=== PATIENT | male | born 1980 | race Caucasian/White ===

== ENCOUNTER 2017-07-19 22:03 | Emergency (ER) | payer BC ==
[2017-07-19] MEDS ORDERED: Sodium Chloride 0.9% 1000 ML 1,000 ML IV STA (22:22)
[2017-07-19 22:36] LABS: BASOPHIL % 0.1 % (0.0-0.4); Eosinophil % 1.5 % (0.00-5.0); Granulocytes % 46.3 % (36.0-66.0); Mean Corpuscular Hemoglobin 29.3 pg (26-32); Monocytes % 8.1 % (0.0-12.0); Platelet Count 268 K/mm3 (150-450); Red Blood Count 5.25 M/mm3 (4.1-5.6); Red Cell Distribution Width 12.4 % (11.5-14.0); White Blood Count 8.6 K/mm3 (4.0-10.5)
--- NOTE | 2017-07-19 22:40 | ERPHSYRPT ---
- History of Present Illness Time Seen by Provider: 07/19/17 22:07 Source: patient Patient Subjective Stated Complaint: pt is co right lower quad pain this hamida - states he thinks it is having a kidney stone -states pain is gone now but prior to arr it radiated into his testicle - no fever - -started taking his flomax and water pill a couple of days ago Triage Nursing Assessment: pt is awake and alert and able to answer questions Physician History: CC: right abdominal pain Hx: 36 y/o patient of Dr Guillen with right lower abdominal pain, queasy all day, worse pain in past hours. He has hx of frequent kidney stones. No prior abdominal surgeries. Nausea. No vomiting. This pain is different from prior pain. Pain now is some better. Radiated to right testicle. No back pain. He has chronic hematuria and follows with urology. Severity: severe (better now) Allergies/Adverse Reactions: guaifenesin [From Mucinex] Allergy (Verified 07/19/17 22:36) Home Medications: Hydrochlorothiazide 1 tab DAILY 07/19/17 [History] Omeprazole [Prilosec] 1 tab DAILY 07/19/17 [History] Hx Tetanus, Diphtheria Vaccination/Date Given: Yes Hx Influenza Vaccination/Date Given: No Hx Pneumococcal Vaccination/Date Given: No - Review of Systems Constitutional: No Fever, No Chills Eyes: No Symptoms Ears, Nose, & Throat: No Symptoms Respiratory: No Symptoms, No Cough, No Dyspnea Cardiac: No Chest Pain Abdominal/Gastrointestinal: Abdominal Pain, Nausea, No Vomiting, No Diarrhea Skin: No Rash Neurological: No Headache All Other Systems: Reviewed and Negative - Past Medical History Pertinent Past Medical History: Yes Neurological History: No Pertinent History ENT History: No Pertinent History Cardiac History: No Pertinent History Respiratory History: No Pertinent History Endocrine Medical History: No Pertinent History Musculoskeletal History: No Pertinent History GI Medical History: No Pertinent History History: Other Psycho-Social History: No Pertinent History Male Reproductive Disorders: No Pertinent History Other Medical History: HX OF KIDNEY STONES - Past Surgical History Past Surgical History: No Musculoskeletal: Other Other Surgical History: BIALT CARPAL TUNNEL - Social History Smoking Status: Never smoker Exposure to second hand smoke: Yes Drug Use: none Patient Lives Alone: No (runs [employer]) - Nursing Vital Signs Nursing Vital Signs: Initial Vital Signs Temperature 98.8 F 07/19/17 22:32 Pulse Rate 97 H 07/19/17 22:32 Respiratory Rate 16 07/19/17 22:32 Blood Pressure 137/86 07/19/17 22:32 O2 Sat by Pulse Oximetry 100 07/19/17 22:32 Pain Scale Pain Intensity 0 - Physical Exam General Appearance: alert Eye Exam: PERRL/EOMI Ears, Nose, Throat Exam: normal ENT inspection, moist mucous membranes Neck Exam: normal inspection, non-tender, supple Respiratory Exam: normal breath sounds, lungs clear Cardiovascular Exam: regular rate/rhythm Gastrointestinal/Abdomen Exam: soft, tenderness (right and left lower), No mass , No guarding Male Genitalia Exam: normal genitalia, No hernia, No testicular tenderness Back Exam: normal inspection, No CVA tenderness Extremity Exam: normal inspection, normal range of motion Neurologic Exam: alert, oriented x 3, cooperative, sensation nml, No motor deficits Skin Exam: warm, dry, No rash SpO2 Interpretation: normal SpO2: 100 Oxygen Delivery: Room Air - Course Nursing assessment & vital signs reviewed: Yes - CT Exams abd/pelvis CT Interpretation: Tele-radiologist Report (no acute, no findings suggestive of appendicitis, no renal stone disease) Ordered Tests: Active Orders 24 hr Category Date Time Status Clean Catch Urine Specimen STAT Care 07/19/17 22:22 Active IV Insertion STAT Care 07/19/17 22:22 Active ABDOMEN AND PELVIS W/0 CONTRAS [CT] Stat Exams 07/19/17 22:22 Taken CBC W DIFF Stat Lab 07/19/17 22:30 Completed CMP Stat Lab 07/19/17 22:30 Completed LIPASE Stat Lab 07/19/17 22:30 Completed UA W/RFX UR CULTURE Stat Lab 07/19/17 22:50 Completed Medication Summary Discontinued Medications Generic Name Dose Route Start Last Admin Trade Name Freq PRN Reason Stop Dose Admin Sodium Chloride 1,000 mls @ 999 mls/hr 07/19/17 22:22 07/19/17 22:49 Sodium Chloride 0.9% 1000 Ml IV 07/19/17 23:22 999 mls/hr .Q1H1M STA Administration Sodium Chloride Confirm 07/19/17 22:45 Sodium Chloride 0.9% 1000 Ml Administered 07/19/17 22:46 Dose 1,000 mls @ ud .ROUTE .[facility] Lab/Rad Data: Laboratory Result Diagrams 07/19/17 22:30 07/19/17 22:30 Laboratory Results 07/19/17 07/19/17 07/19/17 Range/Units 22:50 22:30 22:30 WBC 8.6 (4.0-10.5) K/mm3 RBC 5.25 (4.1-5.6) M/mm3 Hgb 15.4 (12.5-18.0) gm/dl Hct 45.7 (42-50) % MCV 87.0 (78-100) fl MCH 29.3 (26-32) pg MCHC 33.7 (32-36) g/dl RDW 12.4 (11.5-14.0) % Plt Count 268 (150-450) K/mm3 MPV 9.0 (6-9.5) fl Gran % 46.3 (36.0-66.0) % Lymphocytes % 44.0 (24.0-44.0) % Monocytes % 8.1 (0.0-12.0) % Eosinophils % 1.5 (0.00-5.0) % Basophils % 0.1 (0.0-0.4) % Basophils # 0.01 (0-0.4) Sodium 140 (136-145) mEq/L Potassium 3.8 (3.5-5.1) mEq/L Chloride 100 (98-107) mEq/L Carbon Dioxide 31.6 (21-32) mEq/L Anion Gap 11.8 (5-15) MEQ/L BUN 12 (9-20) mg/dL Creatinine 1.16 (0.55-1.30) mg/dl Estimated GFR > 60 ML/MIN Glucose 119 H (70-110) MG/DL Calcium 9.6 (8.5-10.1) mg/dL Total Bilirubin 0.40 (0.2-1.0) mg/dL AST 7 L (15-37) U/L ALT 25 (12-78) U/L Alkaline Phosphatase 79 (46-116) U/L Serum Total Protein 8.0 (6.4-8.2) gm/dL Albumin 4.4 (3.4-5.0) g/dL Lipase 106 (73-393) U/L Ur Collection Type CCMS Urine Color YELLOW (YELLOW) Urine Appearance CLEAR (CLEAR) Urine pH 5.0 (5-6) Ur Specific [place] 1.020 (1.005-1.025) Urine Protein NEGATIVE (Negative) Urine Ketones NEGATIVE (NEGATIVE) Urine Blood NEGATIVE (0-5) Guillermo/ul Urine Nitrite NEGATIVE (NEGATIVE) Urine Bilirubin NEGATIVE (NEGATIVE) Urine Urobilinogen NORMAL (0-1) mg/dL Ur Leukocyte Esterase NEGATIVE (NEGATIVE) Urine Culture Reflexed NO (NO) Urine Glucose NEGATIVE (NEGATIVE) mg/dL Specimen Received 07-19-17 2250 - Progress Progress Note: 07/19/17 22:[address] to rule out appendicitis or kidney stone. He understands risks of repeat CT. He desires CT. 07/19/17 23:[address] reassuring. Still some tenderness on exam, mild on recheck. He was given IVF. Discussed low but possible chance of early appendicitis. He will go home to rest. He had normal BMs. He was instructed to return for worsened pain, fever, vomiting, or concerns. is [employer] and they agree with plan. Counseled pt/family regarding: lab results, diagnosis, need for follow-up, rad results - Departure Time of Disposition: 23:37 Departure Disposition: Home Clinical Impression: RLQ abdominal pain Condition: Stable Critical Care Time: No Referrals: JESSE GUILLEN MD [Primary Care Provider] - Instructions: Abdominal Pain-Adult Additional Instructions: ABDOMINAL PAIN 1. There are several different causes for abdominal pain, some of which may not be able to be identified on initial examination. 2. The important thing to remember is that bodily functions can change in a short period of time. If you notice any of the following symptoms, return to the emergency department or consult your doctor immediately: A. Worsening pain or no improvement in the next 12 hours. B. Increasing, severe abdominal pain C. Blood in stool D. Black stools E. Persistent vomiting F. Fever or chills or other symptoms
[2017-07-19] MEDS ORDERED: Sodium Chloride 0.9% 1000 ML 1,000 ML ONE (22:45)
[2017-07-19 22:54] LABS: Collection Type CCMS
[2017-07-19 22:55] LABS: ADD URINE CULTURE? NO (NO); Bilirubin NEGATIVE (NEGATIVE); Blood NEGATIVE Ery/ul (0-5); COMPLETE URINE MICROSCOPIC? NO; Glucose NEGATIVE (NEGATIVE); Leukocyte Esterase NEGATIVE (NEGATIVE)
[2017-07-19 22:57] LABS: ALBUMIN 4.4 g/dL (3.4-5.0); ALKALINE PHOSPHATASE 79 U/L (46-116); ANION GAP 11.8 MEQ/L (5-15); BLOOD UREA NITROGEN 12 mg/dL (9-20); CHLORIDE 100 mEq/L (98-107); Carbon Dioxide 31.6 mEq/L (21-32); Glucose 119 MG/DL (70-110); LIPASE 106 U/L (73-393); Potassium 3.8 mEq/L (3.5-5.1); SGOT/AST 7 U/L (15-37); SGPT/ALT 25 U/L (12-78); SODIUM 140 mEq/L (136-145)
[2017-07-19 23:19] VITALS: BP 123/83; PULSE 72
[2017-07-19 23:38] VITALS: O2SAT 100
--- NOTE | 2017-07-20 07:09 | XRAY ---
Indication: Right lower quadrant pain and nausea. History of stones. Multiple contiguous axial images obtained through the abdomen and pelvis without contrast as ordered. Comparison: June 30, 2015. Lung bases again essentially clear. Heart is not enlarged. Noncontrasted stomach and bowel loops appear nonobstructed. There is mild/moderate diffuse scattered colonic fecal debris throughout. Normal appendix. No free fluid/air. Remaining liver, gallbladder, pancreas, spleen, adrenal glands, kidneys, ureters, bladder, and aorta appear unremarkable for noncontrast exam. Osseous structures intact. Impression: 1. Fecal stasis without obstruction. 2. No acute intra-abdominal/pelvic abnormalities on this noncontrast exam. Comment: Preliminary interpretation was made by [facility]. No discrepancy. CTDI 18.40
== END 2017-07-19 23:55 | disposition home or self-care (01) ==
LOC: ED 22:03
DX: R10.31 Right lower quadrant pain (principal); R11.10 Vomiting, unspecified
CPT/HCPCS: 36000; 36415; 74176; 80053; 81002; 83690; 85025; 96360; 99284

== ENCOUNTER 2018-08-09 10:22 | Emergency (ER) | payer BC ==
[2018-08-09] MEDS ORDERED: Sodium Chloride 0.9% 1000 ML 1,000 ML (10:41)
[2018-08-09] MEDS ORDERED: MORPHINE SULFATE 4 MG INJ ×2 (10:41→10:54)
[2018-08-09] MEDS ORDERED: Zofran 4 MG/2 ML VIAL (10:41)
[2018-08-09] MEDS: Zofran 4 MG/2 ML VIAL IV (10:52)
[2018-08-09] MEDS: MORPHINE SULFATE 4 MG INJ IV ×2 (10:52→10:55)
[2018-08-09] MEDS: Sodium Chloride 0.9% 1000 ML 1,000 ML IV (11:20)
[2018-08-09] MEDS ORDERED: DIPRIVAN 200 MG/20 ML IV (11:52)
== END 2018-08-09 12:59 | disposition home or self-care (01) ==
LOC: ED 10:22
CPT/HCPCS: 36000; 73030; 93005; 94799; 96374; J2270; J2405; J2704

== ENCOUNTER 2022-06-19 22:27 | Emergency (ER) | payer BC ==
[2022-06-19] MEDS ORDERED: TORAdol 30 mg Injection IV ONE (22:45)
[2022-06-19] MEDS ORDERED: TORAdol 30 mg Injection ONE (23:17)
[2022-06-19] MEDS ORDERED: Sodium Chloride 0.9% 1000 ML 1,000 ML IV STA (23:55)
[2022-06-19] MEDS ORDERED: Hydromorphone 1 mg/ml Injection IV ONE (23:55)
[2022-06-19] MEDS ORDERED: Zofran 4 MG/2 ML VIAL IV ONE (23:56)
[2022-06-19] MEDS ORDERED: Sodium Chloride 0.9% 1000 ML 1,000 ML ONE (23:59)
[2022-06-19] MEDS ORDERED: Hydromorphone 1 mg/ml Injection ONE (23:59)
[2022-06-19] MEDS ORDERED: Zofran 4 MG/2 ML VIAL ONE (23:59)
[2022-06-20 00:33] LABS: Appearance CLEAR (CLEAR); Bilirubin NEGATIVE (NEGATIVE); Dipstick done @ ? MAIN LAB; Glucose NEGATIVE (NEGATIVE); Ketones NEGATIVE (NEGATIVE); Nitrite NEGATIVE (NEGATIVE); Ph 5.5 (5-6); Protein,Urine Dip NEGATIVE (Negative); RBC LARGE Ery/ul (0-5); Specific Gravity >=1.030 (1.005-1.025); Urobilinogen 0.2 mg/dL (0-1)
[2022-06-20 00:35] VITALS: O2SAT 94
[2022-06-20 00:39] LABS: Mucus SLIGHT /HPF (NEGATIVE); RBC >101 /HPF (0-2); Urine Cultured Indicated? NO
--- NOTE | 2022-06-20 00:51 | ERPHSYRPT ---
- History of Present Illness Historian: patient Exam Limitations: no limitations Patient Subjective Stated Complaint: I think I have a kidney stone. Triage Nursing Assessment: pt ambulated into ER, spouse at bedside. Pt c/o back pain and is bent over, states, "I think I have a kidney stone". Pt started having testicle pain last week that moved to lower abd area and now to back. Pt took 2 Cozad at home with no relief. Pt only has back pain at this time. Abd soft with active bs x4 quad, nontender on palpation. The pain got bad tonight around 7pm. Physician History: 41 yo wm w L CVA pain since 06/15 which is worse over the last 24 hours. Pain is a pressure sensation and 9/10 upon arrival. Pain does not radiate. He did have some testicular pain early last week which resolved. Pt does have some nausea but denies vomiting/dysuria/hematuria/diarrhea/melena/hematochezia/fever/chest pain/dyspnea. He has a h/o kidney stones with similar symptoms that have passed wo intervention. Timing/Duration: other (4 days) Activities at Onset: rest Quality: pressure Abdominal Pain Onset Location: other (L CVA) Pain Radiation: no radiation Severity of Pain-Max: severe Severity of Pain-Current: severe Modifying Factors: Improves With: nothing Associated Symptoms: back, testicular pain Previous symptoms: same symptoms as today Allergies/Adverse Reactions: guaifenesin [From Mucinex] Allergy (Verified 06/19/22 22:46) Hx Tetanus, Diphtheria Vaccination/Date Given: Yes Hx Influenza Vaccination/Date Given: No Hx Pneumococcal Vaccination/Date Given: No Immunizations Up to Date: No Travel Risk - International Travel Have you traveled outside of the country in past 3 weeks: No - Coronavirus Screening Are you exhibiting any of the following symptoms?: No Close contact with a COVID-19 positive Pt in past 14-21 Days: No - Vaccine Status Have you recieved a Covid-19 vaccination: Yes Tile Applicator: Moderna - Vaccination Dates Date of 2cond Vaccination (if applicable): . - Review of Systems Constitutional: No Symptoms Eyes: No Symptoms Ears, Nose, & Throat: No Symptoms Respiratory: No Symptoms Cardiac: Orthopnea Abdominal/Gastrointestinal: No Symptoms, Nausea Genitourinary Symptoms: No Symptoms, Flank Pain, Testicle Pain Musculoskeletal: No Symptoms Skin: No Symptoms Neurological: No Symptoms Psychological: No Symptoms Endocrine: No Symptoms Hematologic/Lymphatic: No Symptoms Immunological/Allergic: No Symptoms - Past Medical History Pertinent Past Medical History: Yes Neurological History: No Pertinent History ENT History: No Pertinent History Cardiac History: No Pertinent History Respiratory History: No Pertinent History Endocrine Medical History: No Pertinent History Musculoskeletal History: No Pertinent History GI Medical History: No Pertinent History History: Other Psycho-Social History: No Pertinent History Male Reproductive Disorders: No Pertinent History Other Medical History: HX OF KIDNEY STONES - Past Surgical History Past Surgical History: No Musculoskeletal: Other Other Surgical History: BIALT CARPAL TUNNEL - Social History Smoking Status: Never smoker Exposure to second hand smoke: No Drug Use: none Patient Lives Alone: No Significant Family History: no pertinent family hx - Nursing Vital Signs Nursing Vital Signs: Initial Vital Signs Temperature 97.2 F 06/19/22 22:34 Pulse Rate 99 H 06/19/22 22:34 Respiratory Rate 18 06/19/22 22:34 Blood Pressure 169/146 06/19/22 22:34 O2 Sat by Pulse Oximetry 98 06/19/22 22:34 Pain Scale Pain Intensity [Left Lower 10 Back] Pain Intensity 2 Hypertensive - Physical Exam General Appearance: no apparent distress Eye Exam: PERRL/EOMI, eyes nml inspection Ears, Nose, Throat Exam: normal ENT inspection, TMs normal, pharynx normal, moist mucous membranes, dry mucous membranes Neck Exam: normal inspection, non-tender, supple, full range of motion, No meningismus, No mass, No Brudzinski, No Kernig's Respiratory Exam: normal breath sounds, lungs clear, airway intact Cardiovascular Exam: regular rate/rhythm, normal heart sounds, normal peripheral pulses, capillary refill <2 sec, No murmur Gastrointestinal/Abdomen Exam: soft, normal bowel sounds, No tenderness, No distention Back Exam: normal inspection, normal range of motion, No CVA tenderness Extremity Exam: normal inspection, normal range of motion Neurologic Exam: alert, oriented x 3, cooperative, nurse head II-XII nml as tested, normal mood/affect, nml cerebellar function, nml station & gait, sensation nml Skin Exam: normal color, warm, dry Lymphatic Exam: No adenopathy SpO2 Interpretation: normal SpO2: 94 O2 Delivery: Room Air - Course Nursing assessment & vital signs reviewed: Yes - CT Exams Abdomen/Pelvis CT Interpretation: Tele-radiologist Report (2.7mm L mid ureteral stone w trace L hydronephrosis) Ordered Tests: Active Orders 24 hr Category Date Time Status ABDOMEN AND PELVIS W/0 CONTRAS [CT] Stat Exams 06/19/22 22:46 Taken Medication Summary Discontinued Medications Generic Name Dose Route Start Last Admin Trade Name Brooke PRN Reason Stop Dose Admin Hydromorphone HCl 1 mg 06/19/22 23:55 06/20/22 00:03 Hydromorphone 1 Mg/1ml Inj 1 Mg/Ml Syringe IV 06/19/22 23:56 1 mg STAT ONE Administration Hydromorphone HCl Confirm 06/19/22 23:59 Hydromorphone 1 Mg/1ml Inj 1 Mg/Ml Syringe Administered 06/20/22 00:00 Dose 1 mg .ROUTE .[facility] ONE Sodium Chloride 1,000 mls @ 999 mls/hr 06/19/22 23:55 06/20/22 00:03 Sodium Chloride 0.9% 1000 Ml IV 06/20/22 00:55 999 mls/hr .Q1H1M STA Administration Sodium Chloride Confirm 06/19/22 23:59 Sodium Chloride 0.9% 1000 Ml Administered 06/20/22 00:00 Dose 1,000 mls @ ud .ROUTE .[facility] Ketorolac Tromethamine 15 mg 06/19/22 22:45 06/19/22 23:25 Ketorolac Tromethamine 30 Mg/Ml Inj IV 06/19/22 22:46 15 mg STAT ONE Administration Ketorolac Tromethamine Confirm 06/19/22 23:17 Ketorolac Tromethamine 30 Mg/Ml Inj Administered 06/19/22 23:18 Dose 30 mg .ROUTE .[facility] Ondansetron HCl 4 mg 06/19/22 23:56 06/20/22 00:03 Ondansetron Hcl 4 Mg/2 Ml Vial IV 06/19/22 23:57 4 mg STAT ONE Administration Ondansetron HCl Confirm 06/19/22 23:59 Ondansetron Hcl 4 Mg/2 Ml Vial Administered 06/20/22 00:00 Dose 4 mg .ROUTE .[facility] Lab/Rad Data: Laboratory Results 06/19/22 Range/Units 00:15 Urinalys Dipstick Clnc MAIN LAB Urine Color YELLOW (YELLOW) Urine Appearance CLEAR (CLEAR) Urine pH 5.5 (5-6) Ur Specific [place] >=1.030 (1.005-1.025) POC Urine Protein Conf NEGATIVE (Negative) Urine Ketones NEGATIVE (NEGATIVE) Urine Nitrite NEGATIVE (NEGATIVE) Urine Bilirubin NEGATIVE (NEGATIVE) Urine Urobilinogen 0.2 (0-1) mg/dL Urine Leukocytes NEGATIVE (NEGATIVE) Urine WBC (Auto) NONE (0-5) /HPF Urine RBC (Auto) >101 (0-2) /HPF U Epithel Cells (Auto) NONE (FEW) /HPF Urine Bacteria (Auto) NONE (NEGATIVE) /HPF Urine RBC LARGE (0-5) Guillermo/ul Urine Mucus (Auto) SLIGHT (NEGATIVE) /HPF Ur Culture Indicated? NO Urine Glucose NEGATIVE (NEGATIVE) mg/dL - Progress Progress: improved Progress Note: 06/20/22 00:52 15mg IV Toradol w mild improvement in pain 1L NS bolus/1mg IV Dilaudid/4mg IV Zofran w marked improvement in pain 06/20/22 02:24 BP decreased before discharge Counseled pt/family regarding: lab results, diagnosis, need for follow-up, roseann portillo - Departure Departure Disposition: Home Clinical Impression: Ureterolithiasis Condition: Stable Critical Care Time: No Referrals: JESSE GUILLEN MD [Primary Care Provider] - Follow up/PCP as directed Instructions: Kidney Stones (DC) Additional Instructions: Strain all urine Pain meds as needed(Use a stool softener with pain meds) Zofran for nausea/vomiting Follow up with your family MD or urologist Return to ER for increasing pain or temperature greater than 100.5 Prescriptions: Ondansetron ODT 4 MG [Zofran Odt 4 mg] 4 mg PO Q6HPRN PRN #12 tab PRN Reason: Nausea Hydrocodone/Acetaminophen [Hydrocodone-Acetamin 10-325 mg] 1 each PO Q4-6HPRN PRN #10 tablet MDD 4 tabs PRN Reason: Pain
[2022-06-20 01:30] VITALS: BP 131/74; PULSE 73
--- NOTE | 2022-06-21 22:36 | XRAY ---
Exam: CT of the abdomen and pelvis without IV contrast from 06/19/2022. CTDI: 8.61 mGy Comparison: CT of the abdomen and pelvis without IV contrast from 07/19/2017. Indication: 41-year-old male with history of flank pain. Patient states he has a history of kidney stones. Technique: Non-IV contrast axial images were obtained through the abdomen and pelvis. Reconstructed coronal and sagittal images were created and reviewed. Findings: There appears to be a 3 mm mid left ureteral stone at the L4-L5 interspace level which causes mild proximal left hydroureter and mild left-sided hydronephrosis. This is new from 07/19/2017. The remainder of the kidneys appears unremarkable. No other renal calculi or ureteral calculi are seen. No urinary bladder calculi are seen. The lung bases appear clear. The liver and spleen appear of unremarkable size. No liver or splenic mass is seen. No intrahepatic biliary duct distention is seen. The gallbladder is only partially distended. No intraluminal calcification is seen within the gallbladder. The common bile duct does not appear distended. The pancreas and adrenal glands appear unremarkable. The abdominal aorta is of normal diameter. No abnormal retroperitoneal lymphadenopathy is seen. No free intraperitoneal air or ventral abdominal wall hernia is seen. No abnormal bowel distention is seen. Scattered colonic stool is seen. The appendix appears unremarkable. No pelvic mass, abnormal pelvic lymphadenopathy, or free intraperitoneal fluid is seen. The urinary bladder is mostly empty. No definite urinary bladder stone is seen. The seminal vesicles and prostate gland appear unremarkable. Small postinflammatory lymph nodes are seen within each groin. The skeleton reveals no fracture or aggressive bone lesion. There is asymmetric enlargement of the right L5 transverse process which pseudo-articulates with the upper right side of the sacrum. This represents a developmental variant. There is spurring and vacuum phenomena at this pseudoarticulation. Impression: 1. There is a 3 mm stone within the mid left ureter on axial image #59 causing mild left-sided obstructive uropathy manifested by proximal left hydroureter and mild left-sided hydronephrosis. No other renal or ureteral calculi are seen. 2. No other acute process is seen within the abdomen or pelvis.
== END 2022-06-20 01:38 | disposition home or self-care (01) ==
LOC: ED 22:27
DX: N13.2 Hydronephrosis with renal and ureteral calculous obstruction (principal); Z87.442 Personal history of urinary calculi; R10.9 Unspecified abdominal pain; R11.0 Nausea; Z79.891 Long term (current) use of opiate analgesic
CPT/HCPCS: 36000; 74176; 81015; 96374; 99284; J1170; J1885; J2405